=== PATIENT | female | born 1960 | race Two or more races ===

== ENCOUNTER 2018-04-12 14:21 | Outpatient (CLI) | payer OTHER | END 2018-04-12 14:31 | disposition home or self-care (01) | LOC: RAD 14:21 | DX: R05 Cough (principal); J32.8 Other chronic sinusitis ==

== ENCOUNTER → 2018-05-04 | Emergency (ER) | payer OTHER ==
[~2018-05-04] VITALS: Ht 160 cm; Wt 64.9 kg
[~2018-05-04] MED LIST: AMBIEN10 MG; LEVAQUIN500 MG PO; LYRICA50 MG; MUPIROCIN22 GM TOP; ORASEP SPRAY30 ML MM; PEPCID40 MG PO; ZOFRAN ODT8 MG PO
== END | disposition home or self-care (01) ==
LOC: ER 20:08
DX: T22.251A Burn of second degree of right shoulder, initial encounter (principal); X08.8XXA Exposure to other specified smoke, fire and flames, initial encounter; Y93.89 Activity, other specified; Y92.89 Other specified places as the place of occurrence of the external cause; Y99.8 Other external cause status; R50.9 Fever, unspecified; R10.84 Generalized abdominal pain

== ENCOUNTER 2018-05-07 10:37 | Emergency (ER) | payer OTHER ==
[~2018-05-07] VITALS: Ht 160 cm; Wt 64.9 kg
== END 2018-05-07 16:46 | disposition home or self-care (01) ==
LOC: ER 10:37
DX: L27.1 Localized skin eruption due to drugs and medicaments taken internally (principal); T36.8X5A Adverse effect of other systemic antibiotics, initial encounter